=== PATIENT | female | born 1945 | race Caucasian/White ===

== ENCOUNTER → 2017-01-22 | Outpatient (REF) | payer MEDICARE, BC | LOC: M LAB REF 09:30 | PROVIDERS: ATTEND Physician Assistant Medical | DX: N30.01 Acute cystitis with hematuria (principal) ==

== ENCOUNTER → 2019-10-25 | Outpatient (REF) | payer MEDICARE, BC | LOC: M SFHCWAGY 17:38 | PROVIDERS: ATTEND Nurse Practitioner Family | DX: Z12.4 Encounter for screening for malignant neoplasm of cervix (principal); N95.2 Postmenopausal atrophic vaginitis | CPT/HCPCS: 81002; G0123; G0463 ==

== ENCOUNTER → 2019-10-30 | Outpatient (CLI) | payer MEDICARE, BC ==
--- NOTE | 2019-10-30 11:08 | REP ---
REASON: Vaginal bleeding. COMPARISON: None. Transvesical and transvaginal imaging was obtained. The uterus measures 4.6 x 1.9 x 4.1 cm. The parenchymal echo pattern is within normal limits. Within the lower uterine segment, there is evidence of an oval-shaped 1.4 x 1.1 x 1.2 cm sized solid nodule. There is no free fluid in the cul-de-sac. Right ovary measures 1 x 0.7 x 0.8 and left ovary measures 1.1 x 0.8 x 1.1. . Both ovaries are within normal limits. IMPRESSION: There is a solid-appearing nodule in the lower uterine segment/upper cervix the etiology of which is uncertain and potentially represents either a lower uterine segment fibroid or an intracervical nodule. Consider further evaluation with pre and post gadolinium enhanced pelvic MRI.
== END ==
LOC: M WHC 09:17
PROVIDERS: ATTEND Nurse Practitioner Family
DX: N93.0 Postcoital and contact bleeding (principal); N85.9 Noninflammatory disorder of uterus, unspecified

== ENCOUNTER → 2020-01-26 | Outpatient (REF) | payer MEDICARE, BC | LOC: M LAB REF 12:44 | PROVIDERS: ATTEND Nurse Practitioner Family | DX: R30.0 Dysuria (principal) ==

== ENCOUNTER → 2021-12-22 | Outpatient (CLI) | payer MEDICARE, BC | LOC: M WHC 15:11 | PROVIDERS: ATTEND Nurse Practitioner Family | DX: Z12.31 Encounter for screening mammogram for malignant neoplasm of breast (principal) ==

== ENCOUNTER 2022-01-28 14:34 | Inpatient (IN) | payer MEDICARE, BC ==
[~2022-01-28] VITALS: Ht 170.2 cm; Wt 88.2 kg
[2022-01-28] MEDS ORDERED: SIMV40TA20 PO (14:45)
[2022-01-28] MEDS ORDERED: LISI10TA22 PO (14:45)
[2022-01-28] MEDS ORDERED: OMEP40CA5 PO (14:45)
[2022-01-28] MEDS ORDERED: LEVO50TA5 PO (14:45)
[2022-01-28] MEDS ORDERED: FLUTISP NARES (14:45)
[2022-01-28 15:39] LABS: BASO % 0.3 % (0.0-1.0); EOS # 0.2 10^3/uL (0.0-0.5); EOS % 2.5 % (0.0-3.0); HEMATOCRIT 33.2 % (36.0-47.0); LYMPH # 1.7 10^3/uL (1.5-5.0); LYMPH % 27.4 % (24.0-44.0); MEAN CORPUSCULAR HEMOGLOBIN 30.6 pg (27.0-33.0); MEAN CORPUSCULAR HGB CONC 33.1 g/dl (32.0-36.5); MEAN CORPUSCULAR VOLUME 92.2 fl (80.0-96.0); MONO # 0.6 10^3/uL (0.0-0.8); MONO % 9.9 % (2.0-8.0); NEUTROPHILS # 3.8 10^3/uL (1.5-8.5); NEUTROPHILS % 59.6 % (36.0-66.0); PLATELET COUNT, AUTOMATED 184 10^3/uL (150-450); WHITE BLOOD COUNT 6.4 10^3/uL (4.0-10.0)
[2022-01-28 15:52] LABS: INR 0.92; PROTHROMBIN TIME 12.8 SECONDS (12.7-14.5)
[2022-01-28 15:53] LABS: PARTIAL THROMBOPLASTIN TIME 26.6 SECONDS (25.9-37.0)
[2022-01-28 16:09] LABS: CALCIUM LEVEL 9.7 MG/DL (8.8-10.2); GLOMERULAR FILTRATION RATE 57.5 (>39); POTASSIUM SERUM 3.9 MEQ/L (3.5-5.1)
[2022-01-28] MEDS ORDERED: ISOVUE-370 76% 100ML VIAL As Ordered ONE (19:27)
[2022-01-28] MEDS ORDERED: CALC1TAB63 PO (19:28)
[2022-01-28] MEDS ORDERED: VITMTA PO (19:28)
[2022-01-28] MEDS ORDERED: HOME MED LIST COMPLETE! XX SCH (19:30)
[2022-01-28 20:10] LABS: RSV AMPLIFICATION NEGATIVE (NEGATIVE)
[2022-01-28] MEDS ORDERED: ONDANSETRON 4MG 2ML VIAL IV PRN (20:20)
[2022-01-28] MEDS ORDERED: ACETAMINOPHEN TAB 650MG DOSE (2X325MG) PO PRN (20:20)
[2022-01-28] MEDS ORDERED: hydrALAZINE 20MG/ML 1ML VIAL (J0360 PER 20MG) IV ONE (20:35)
[2022-01-28 20:49] LABS: FREE T4 1.17 NG/DL (0.76-1.46); THYROID STIMULATING HORMONE 4.01 uIU/ML (0.358-3.740)
[2022-01-28 20:50] LABS: HEMOGLOBIN A1c 5.9 %
[2022-01-28] MEDS ORDERED: SIMVASTATIN 20 MG TAB PO SCH (21:00)
[2022-01-28 22:45] VITALS: BP 158/76
[2022-01-28] MEDS: CLOPIDOGREL 75 MG TAB PO SCH (23:44)
[2022-01-29] VITALS (23 sets, daily range): BP systolic 104–150; BP diastolic 58–80; O2SAT 95–98
[2022-01-29] MEDS ORDERED: NS 1,000 ML IV ONE ×2 (02:25→07:50)
[2022-01-29 04:27] LABS: BASO % 0.4 % (0.0-1.0); EOS # 0.2 10^3/uL (0.0-0.5); EOS % 2.7 % (0.0-3.0); HEMATOCRIT 30.6 % (36.0-47.0); HEMOGLOBIN 10.1 g/dl (12.0-15.5); LYMPH # 1.7 10^3/uL (1.5-5.0); LYMPH % 21.6 % (24.0-44.0); MEAN CORPUSCULAR HEMOGLOBIN 30.1 pg (27.0-33.0); MEAN CORPUSCULAR VOLUME 91.3 fl (80.0-96.0); MONO # 0.9 10^3/uL (0.0-0.8); MONO % 10.8 % (2.0-8.0); NEUTROPHILS # 5.1 10^3/uL (1.5-8.5); NEUTROPHILS % 64.2 % (36.0-66.0); PLATELET COUNT, AUTOMATED 190 10^3/uL (150-450); RED BLOOD COUNT 3.35 10^6/uL (4.00-5.40); WHITE BLOOD COUNT 7.9 10^3/uL (4.0-10.0)
[2022-01-29 05:01] LABS: BLOOD UREA NITROGEN 14 MG/DL (7-18); CARBON DIOXIDE LEVEL 27 MEQ/L (21-32); CHLORIDE LEVEL 104 MEQ/L (98-107); CHOLESTEROL LEVEL 197 MG/DL (<200); CREATININE FOR GFR 0.85 MG/DL (0.55-1.30); GLOMERULAR FILTRATION RATE > 60.0 (>39); GLUCOSE, FASTING 90 MG/DL (70-100); HDL CHOLESTEROL 62 MG/DL (>40); POTASSIUM SERUM 3.8 MEQ/L (3.5-5.1); SODIUM LEVEL 135 MEQ/L (136-145); TRIGLYCERIDES LEVEL 104 MG/DL (<150)
[2022-01-29 05:02] LABS: CHOLESTEROL RISK RATIO 3.177 (<5); LDL CHOLESTEROL 114 MG/DL (<100); MAGNESIUM LEVEL 1.6 MG/DL (1.8-2.4); NON-HDL-C 135 MG/DL
[2022-01-29] MEDS ORDERED: MAGNESIUM OXIDE 400MG TAB (MAG-OX) PO ONE (05:40)
[2022-01-29] MEDS: LEVOTHYROXINE 50MCG TABLET (0.05MG) PO SCH (06:20)
[2022-01-29] MEDS: MIDODRINE 5 MG TAB PO SCH ×3 (08:00→16:00)
[2022-01-29] MEDS: FLUTICASONE PROP 0.05% NASAL SPRAY 16 GM (FLONASE) NARES PRN (09:15)
[2022-01-29] MEDS: ASPIRIN 81 MG CHEW TABLET PO SCH (09:16)
[2022-01-29] MEDS: MULTIVITAMINS/MINERALS THERAP 1 TAB PO SCH (09:16)
[2022-01-29] MEDS: PANTOPRAZOLE 40MG TAB (PROTONIX) PO SCH (09:16)
[2022-01-29] MEDS: CLOPIDOGREL 75 MG TAB PO SCH (09:16)
[2022-01-29] MEDS: ENOXAPARIN 40MG/0.4ML SYRINGE (J1650 PER 10MG) SC SCH (09:16)
[2022-01-29] MEDS ORDERED: ATORVASTATIN 20 MG TAB PO SCH (21:00)
[2022-01-30] VITALS (7 sets, daily range): BP systolic 130–148; BP diastolic 62–82; O2SAT 96–98
[2022-01-30] MEDS: LEVOTHYROXINE 50MCG TABLET (0.05MG) PO SCH (06:25)
[2022-01-30] MEDS ORDERED: ATOR1TAB21 PO (07:35)
[2022-01-30] MEDS ORDERED: ASPI81CH8 PO (07:35)
[2022-01-30] MEDS ORDERED: CLOP75TA2 PO (07:35)
[2022-01-30] MEDS ORDERED: NORV5TAB PO (07:42)
[2022-01-30] MEDS ORDERED: SELF1KIT MC (07:42)
[2022-01-30] MEDS: CLOPIDOGREL 75 MG TAB PO SCH (08:28)
[2022-01-30] MEDS: PANTOPRAZOLE 40MG TAB (PROTONIX) PO SCH (08:28)
[2022-01-30] MEDS: ASPIRIN 81 MG CHEW TABLET PO SCH (08:28)
[2022-01-30] MEDS: ENOXAPARIN 40MG/0.4ML SYRINGE (J1650 PER 10MG) SC SCH (08:28)
[2022-01-30] MEDS: MULTIVITAMINS/MINERALS THERAP 1 TAB PO SCH (08:29)
[2022-01-30] MEDS: FLUTICASONE PROP 0.05% NASAL SPRAY 16 GM (FLONASE) NARES PRN (08:29)
== END 2022-01-30 10:00 | disposition home or self-care (01) | DRG 66 ==
LOC: M ED 14:34 → M ED INP 19:18 → ENRESERV 20:27 → M PCU 22:39
PROVIDERS: ADMIT Family Medicine; ATTEND General Practice
DX: I63.531 Cerebral infarction due to unspecified occlusion or stenosis of right posterior cerebral artery (principal); I10 Essential (primary) hypertension; E78.00 Pure hypercholesterolemia, unspecified; E03.9 Hypothyroidism, unspecified; K21.9 Gastro-esophageal reflux disease without esophagitis; M19.90 Unspecified osteoarthritis, unspecified site; R42 Dizziness and giddiness; R00.1 Bradycardia, unspecified; D64.9 Anemia, unspecified; H53.8 Other visual disturbances; E83.42 Hypomagnesemia; Z79.890 Hormone replacement therapy; Z79.899 Other long term (current) drug therapy; Z90.49 Acquired absence of other specified parts of digestive tract; Z87.891 Personal history of nicotine dependence

== ENCOUNTER 2022-02-11 16:57 | Observation (INO) | payer MEDICARE, BC ==
[~2022-02-11] VITALS: Ht 170.2 cm; Wt 87.8 kg
[~2022-02-11 16:57] MED LIST: ASPI81CH8 PO; ATOR1TAB21 PO; CALC1TAB63 PO; CLOP75TA2 PO; FLUTISP; LEVO50TA5 PO; LISI10TA22 PO; NORV5TAB PO; OMEP40CA5 PO; SELF1KIT MC; SIMV40TA20 PO; VITMTA PO
[2022-02-11] MEDS ORDERED: LISI10TA22 PO (17:09)
[2022-02-11] MEDS ORDERED: PANT40TA29 PO (17:09)
[2022-02-11] MEDS ORDERED: hydrALAZINE 20MG/ML 1ML VIAL (J0360 PER 20MG) IV ONE (20:25)
[2022-02-11 21:06] LABS: BASO % 0.4 % (0.0-1.0); EOS # 0.2 10^3/uL (0.0-0.5); EOS % 2.4 % (0.0-3.0); HEMATOCRIT 32.8 % (36.0-47.0); HEMOGLOBIN 11.6 g/dl (12.0-15.5); LYMPH # 2.7 10^3/uL (1.5-5.0); LYMPH % 28.8 % (24.0-44.0); MEAN CORPUSCULAR HEMOGLOBIN 30.9 pg (27.0-33.0); MEAN CORPUSCULAR HGB CONC 35.4 g/dl (32.0-36.5); MEAN CORPUSCULAR VOLUME 87.5 fl (80.0-96.0); MONO # 0.8 10^3/uL (0.0-0.8); MONO % 8.8 % (2.0-8.0); NEUTROPHILS # 5.5 10^3/uL (1.5-8.5); NEUTROPHILS % 59.3 % (36.0-66.0); PLATELET COUNT, AUTOMATED 259 10^3/uL (150-450); RED BLOOD COUNT 3.75 10^6/uL (4.00-5.40); WHITE BLOOD COUNT 9.3 10^3/uL (4.0-10.0)
[2022-02-11 21:43] LABS: CK-MB VALUE MASS 1.4 NG/ML (<3.6); MB/CK RELATIVE INDEX 2.41 (< OR =4)
[2022-02-11 21:46] LABS: BLOOD UREA NITROGEN 17 MG/DL (7-18); CALCIUM LEVEL 9.5 MG/DL (8.8-10.2); CARBON DIOXIDE LEVEL 26 MEQ/L (21-32); CHLORIDE LEVEL 94 MEQ/L (98-107); CREATININE FOR GFR 0.94 MG/DL (0.55-1.30); GLOMERULAR FILTRATION RATE > 60.0 (>39); GLUCOSE, FASTING 101 MG/DL (70-100); MAGNESIUM LEVEL 1.4 MG/DL (1.8-2.4); POTASSIUM SERUM 3.9 MEQ/L (3.5-5.1); SODIUM LEVEL 129 MEQ/L (136-145)
[2022-02-11] MEDS ORDERED: MAG SULF 1GM/100ML (MAG RUN) 1 GM in IV 1 EA IV ONE ×4 (21:50)
[2022-02-11] MEDS ORDERED: NS 500 ML IV ONE (21:50)
[2022-02-11 22:09] LABS: NT-PRO BNP 216 PG/ML (<450)
[2022-02-11 23:22] LABS: CK-MB VALUE MASS < 1.0 NG/ML (<3.6); CPK CREATINE PHOSPHOKINASE 56 U/L (26-192); MB/CK RELATIVE INDEX 1.79 (< OR =4)
[2022-02-12] MEDS ORDERED: CLOPIDOGREL 75 MG TAB PO ONE (01:30)
[2022-02-12] MEDS ORDERED: ACETAMINOPHEN TAB 650MG DOSE (2X325MG) PO PRN (01:30)
[2022-02-12] MEDS ORDERED: LEVOTHYROXINE 50MCG TABLET (0.05MG) PO SCH (06:00)
[2022-02-12] MEDS ORDERED: LISI10TA22 PO ×2 (06:29→15:05)
[2022-02-12] MEDS ORDERED: PANT40TA29 PO (06:29)
[2022-02-12] MEDS ORDERED: ATOR80TA59 PO (06:29)
[2022-02-12] MEDS ORDERED: DICL20GE TOP (06:29)
[2022-02-12] MEDS ORDERED: ASPI-161 PO (06:29)
[2022-02-12] MEDS ORDERED: CALC1TAB74 PO (06:29)
[2022-02-12] MEDS ORDERED: HOME MED LIST COMPLETE! XX SCH (06:30)
[2022-02-12 06:42] LABS: BLOOD UREA NITROGEN 13 MG/DL (7-18); CALCIUM LEVEL 8.9 MG/DL (8.8-10.2); CARBON DIOXIDE LEVEL 27 MEQ/L (21-32); CHLORIDE LEVEL 96 MEQ/L (98-107); CREATININE FOR GFR 0.89 MG/DL (0.55-1.30); FREE T4 1.18 NG/DL (0.76-1.46); GLOMERULAR FILTRATION RATE > 60.0 (>39); GLUCOSE, FASTING 90 MG/DL (70-100); POTASSIUM SERUM 4.1 MEQ/L (3.5-5.1); SODIUM LEVEL 128 MEQ/L (136-145)
[2022-02-12 06:49] LABS: CK-MB VALUE MASS < 1.0 NG/ML (<3.6); CPK CREATINE PHOSPHOKINASE 54 U/L (26-192); MB/CK RELATIVE INDEX 1.85 (< OR =4)
[2022-02-12] MEDS ORDERED: FLUTICASONE PROP 0.05% NASAL SPRAY 16 GM (FLONASE) PRN (08:15)
[2022-02-12] MEDS ORDERED: PANTOPRAZOLE 40MG TAB (PROTONIX) PO SCH (09:00)
[2022-02-12] MEDS ORDERED: DOCUSATE SODIUM 100MG CAPSULE PO SCH (09:00)
[2022-02-12] MEDS ORDERED: ASPIRIN 81MG ENTERIC TABLET PO SCH (09:00)
[2022-02-12] MEDS ORDERED: METOPROLOL SUCC *XL* 25MG TAB (TopROL *XL*) PO SCH (09:00)
[2022-02-12 14:00] VITALS: BP 144/80
[2022-02-12 14:10] LABS: BLOOD UREA NITROGEN 14 MG/DL (7-18); CALCIUM LEVEL 9.3 MG/DL (8.8-10.2); CARBON DIOXIDE LEVEL 24 MEQ/L (21-32); CHLORIDE LEVEL 97 MEQ/L (98-107); CREATININE FOR GFR 0.86 MG/DL (0.55-1.30); GLOMERULAR FILTRATION RATE > 60.0 (>39); GLUCOSE, FASTING 89 MG/DL (70-100); POTASSIUM SERUM 4.5 MEQ/L (3.5-5.1); SODIUM LEVEL 128 MEQ/L (136-145)
[2022-02-12] MEDS ORDERED: CLOPIDOGREL 75 MG TAB PO SCH (21:00)
[2022-02-12] MEDS ORDERED: ATORVASTATIN 20 MG TAB PO SCH (21:00)
== END 2022-02-12 16:24 | disposition home or self-care (01) ==
LOC: M ED 16:57 → M ED INP 16:58 → ENRESERV 02-12 12:12 → M MSPAV 02-12 13:01
PROVIDERS: ADMIT Internal Medicine; ATTEND Family Medicine
DX: I10 Essential (primary) hypertension (principal); R74.8 Abnormal levels of other serum enzymes; E87.1 Hypo-osmolality and hyponatremia; E83.42 Hypomagnesemia; E03.9 Hypothyroidism, unspecified; E78.5 Hyperlipidemia, unspecified; K21.9 Gastro-esophageal reflux disease without esophagitis; Z86.73 Personal history of transient ischemic attack (TIA), and cerebral infarction without residual deficits; Z79.899 Other long term (current) drug therapy; Z79.82 Long term (current) use of aspirin; Z79.02 Long term (current) use of antithrombotics/antiplatelets; Z79.890 Hormone replacement therapy; Z88.0 Allergy status to penicillin
CPT/HCPCS: 36415; 71045; 80048; 82550; 82553; 83735; 83880; 84439; 84443; 84484; 85025; 87486; 87581; 87633; 87798; 93005; 99285; G0378; J3475

== ENCOUNTER → 2022-12-23 | Outpatient (CLI) | payer MEDICARE, BC ==
[~2022-12-23] MED LIST changes: +ASPI-161 PO; +ATOR80TA59 PO; +CALC1TAB74 PO; +DICL20GE TOP; +FLUT50SP17; -FLUTISP; +PANT40TA29 PO
== END ==
LOC: M WHC 09:11
DX: Z12.31 Encounter for screening mammogram for malignant neoplasm of breast (principal)

== ENCOUNTER → 2023-01-15 | Outpatient (CLI) | payer MEDICARE, BC ==
[2023-01-15 15:03] LABS: BASO % 0.6 % (0.0-1.0); EOS # 0.4 10^3/uL (0.0-0.5); EOS % 5.4 % (0.0-3.0); HEMATOCRIT 34.9 % (36.0-47.0); HEMOGLOBIN 11.6 g/dl (12.0-15.5); LYMPH # 1.9 10^3/uL (1.5-5.0); LYMPH % 28.3 % (24.0-44.0); MEAN CORPUSCULAR HEMOGLOBIN 31.1 pg (27.0-33.0); MEAN CORPUSCULAR HGB CONC 33.2 g/dl (32.0-36.5); MEAN CORPUSCULAR VOLUME 93.6 fl (80.0-96.0); MONO # 0.6 10^3/uL (0.0-0.8); MONO % 9.6 % (2.0-8.0); NEUTROPHILS # 3.6 10^3/uL (1.5-8.5); NEUTROPHILS % 55.6 % (36.0-66.0); PLATELET COUNT, AUTOMATED 229 10^3/uL (150-450); RED BLOOD COUNT 3.73 10^6/uL (4.00-5.40); WHITE BLOOD COUNT 6.5 10^3/uL (4.0-10.0)
[2023-01-15 15:27] LABS: ALBUMIN 3.6 G/DL (3.2-5.2); ALKALINE PHOSPHATASE 83 U/L (46-116); ALT/SGPT 18 U/L (7.0-40); AST/SGOT 14 U/L (<34); BILIRUBIN,TOTAL 0.6 MG/DL (0.3-1.2); BLOOD UREA NITROGEN 19 MG/DL (9-23); CALCIUM LEVEL 9.3 MG/DL (8.3-10.6); CARBON DIOXIDE LEVEL 28 MMOL/L (20-31); CHLORIDE LEVEL 102 MMOL/L (98-107); CHOLESTEROL LEVEL 163 MG/DL (<200); CHOLESTEROL RISK RATIO 2.71 (<5); CREATININE FOR GFR 0.87 MG/DL (0.55-1.30); GLOMERULAR FILTRATION RATE > 60.0 (>39); GLUCOSE, FASTING 95 MG/DL (74-106); HDL CHOLESTEROL 60.1 MG/DL (>40); LDL CHOLESTEROL 87.9 MG/DL (<100); NON-HDL-C 102.9 MG/DL; POTASSIUM SERUM 4.4 MMOL/L (3.5-5.1); SODIUM LEVEL 138 MMOL/L (136-145); TOTAL PROTEIN 6.5 G/DL (5.7-8.2); TRIGLYCERIDES LEVEL 75 MG/DL (<150)
[2023-01-15 15:28] LABS: FOLATE > 24.00 NG/ML (>5.4); VITAMIN B12 LEVEL 514 PG/ML (211-911)
[2023-01-20 19:10] LABS: VITAMIN B1 LEVEL WHOLE BLOOD 107.6 nmol/L (66.5-200.0); VITAMIN B6,PYRIDOXAL PHOSPHATE 21.6 ug/L (3.4-65.2); VITAMIN E(ALPHA TOCOPHEROL) 15.2 mg/L (9.0-29.0); VITAMIN E(GAMMA TOCOPHEROL) 0.6 mg/L (0.5-4.9)
== END ==
LOC: M PLALAB 09:42
PROVIDERS: ATTEND Psychiatry & Neurology Neurology
DX: E53.8 Deficiency of other specified B group vitamins (principal); E78.5 Hyperlipidemia, unspecified; R41.3 Other amnesia

== ENCOUNTER → 2023-12-27 | Outpatient (CLI) | payer MEDICARE, BC ==
[~2023-12-27] MED LIST changes: -ASPI-161 PO; +ASPI-615 PO; -FLUT50SP17; +FLUTISP
== END ==
LOC: M WHC 09:36
PROVIDERS: ATTEND Internal Medicine
DX: Z12.31 Encounter for screening mammogram for malignant neoplasm of breast (principal); R92.313 Mammographic fatty tissue density, bilateral breasts

== ENCOUNTER → 2024-12-27 | Outpatient (CLI) | payer MEDICARE, BC | LOC: M WHC 08:05 | PROVIDERS: ATTEND Internal Medicine | DX: Z12.31 Encounter for screening mammogram for malignant neoplasm of breast (principal); R92.313 Mammographic fatty tissue density, bilateral breasts ==